=== PATIENT | female | born 1975 | race Caucasian/White ===

== ENCOUNTER 2017-12-18 15:24 | Outpatient (CLI) | payer OTHER ==
[2017-12-18] MEDS ORDERED: PRENATAL TABLE1 EACH PO (16:22)
[2017-12-18] MEDS ORDERED: ASPIR 8181 MG PO (16:24)
== END 2017-12-19 15:19 | disposition home or self-care (01) ==
LOC: OBS/DEL 15:24
DX: O26.893 Other specified pregnancy related conditions, third trimester (principal); R10.9 Unspecified abdominal pain; Z34.83 Encounter for supervision of other normal pregnancy, third trimester

== ENCOUNTER → 2021-02-27 | Outpatient (CLI) | payer OTHER ==
[~2021-02-27] MED LIST: ASPIR 8181 MG PO; PRENATAL TABLE1 EACH PO
== END | disposition home or self-care (01) ==
LOC: MAMO-SONO 02-21 15:15 → SONOGRAMA 13:13
DX: M25.562 Pain in left knee (principal)